=== PATIENT | male | born 1990 | race Caucasian/White ===

== ENCOUNTER 2022-08-07 10:18 | Emergency (ER) | payer SELFPAY ==
[~2022-08-07] VITALS: Ht 167.6 cm; Wt 80.0 kg
[2022-08-07 14:45] LABS: CLARITY URINE CLEAR (CLEAR); COLOR URINE ORANGE (YELLOW); KETONES URINE NEGATIVE (NEGATIVE); LEUKOCYTE ESTERASE URINE 1+ (NEGATIVE); NITRITE URINE POSITIVE (NEGATIVE); OCCULT BLOOD URINE NEGATIVE (NEGATIVE); PROTEIN URINE 1+ (NEGATIVE); SPECIFIC GRAVITY URINE 1.051 (1.005-1.030)
[2022-08-07] MEDS ORDERED: LIDOCAINE HCL 1% 20ML VIAL (Pyxis) INJ INFIL ONE (15:15)
[2022-08-07] MEDS ORDERED: HYDROCODONE/ACETAMINOPHEN 5/325MG TABLET PO ONE (15:15)
[2022-08-07] MEDS ORDERED: CEFTRIAXONE SODIUM 1 G/VIAL IM ONE (15:15)
[2022-08-07] MEDS ORDERED: IBUP-2030 MT (15:17)
[2022-08-07] MEDS ORDERED: PYR200 MT (15:17)
[2022-08-07] MEDS ORDERED: NITR-87 MT (15:17)
[2022-08-07 15:46] VITALS: BP 135/103
[2022-08-10 05:14] LABS: NEISSERIA GONORRHOEAE NAA Negative (Negative)
== END 2022-08-07 15:54 | disposition home or self-care (01) ==
LOC: ER 10:27
DX: N43.3 Hydrocele, unspecified (principal)
CPT/HCPCS: 76870; 81003; 87086; 87491; 87591; 93976; 96372; 99285; J0696; J3490; Z7610

== ENCOUNTER 2022-08-09 09:19 | Emergency (ER) | payer SELFPAY ==
[~2022-08-09] VITALS: Ht 172.7 cm; Wt 75.0 kg
[~2022-08-09 09:19] MED LIST: IBUP-2030 MT; NITR-87 MT; PYR200 MT
[2022-08-09] MEDS ORDERED: HYDROCODONE/ACETAMINOPHEN 7.5/325MG TABLET PO ONE (12:00)
[2022-08-09 12:37] LABS: BASOPHILS % 0.3 % (0.0-2.0); EOSINOPHILS % 0.1 % (0.0-5.0); HEMATOCRIT. 46.5 % (42.0-52.0); HEMOGLOBIN. 16.2 g/dL (14.0-18.0); LYMPHOCYTES % 16.7 % (20.0-50.0); MEAN CORPUSCULAR HEMOGLOBIN 33.5 pg (28.0-32.0); MEAN PLATELET VOLUME 8.8 fl (7.4-10.4); MONOCYTES % 9.7 % (2.0-8.0); NEUTROPHILS % 73.2 % (40.0-76.0); PLATELET 253 x1000/uL (130-400); RED BLOOD CELL COUNT 4.85 mill/uL (4.7-6.1); RED CELL DISTRIBUTION WIDTH 12.2 % (11.6-14.6)
[2022-08-09 12:56] LABS: CHLORIDE 102 mEq/L (98-107)
[2022-08-09 13:09] LABS: CLARITY URINE CLOUDY (CLEAR); COLOR URINE ORANGE (YELLOW); KETONES URINE 4+ (NEGATIVE); LEUKOCYTE ESTERASE URINE 2+ (NEGATIVE); NITRITE URINE POSITIVE (NEGATIVE); OCCULT BLOOD URINE 2+ (NEGATIVE); PH URINE 5.5 (4.5-8.0); PROTEIN URINE 4+ (NEGATIVE); SPECIFIC GRAVITY URINE 1.033 (1.005-1.030)
[2022-08-09] MEDS ORDERED: CEPH500T MT (13:57)
[2022-08-09] MEDS ORDERED: CLOT15CR27 TP (13:59)
[2022-08-09] MEDS ORDERED: PENICILLIN G BENZATHINE 2,400,000 UNITS/4ML SYR IM ONE (14:00)
[2022-08-09] MEDS ORDERED: HYDR-4001 MT (14:03)
[2022-08-09 15:33] VITALS: BP 125/76
== END 2022-08-09 15:36 | disposition home or self-care (01) ==
LOC: ER 14:39
DX: N39.0 Urinary tract infection, site not specified (principal)
CPT/HCPCS: 36415; 80053; 81003; 85025; 86592; 87086; 96372; 99283; J0561; Z7610; A4315